=== PATIENT | female | born 1955 | race Asian ===

== ENCOUNTER 2020-04-21 15:08 | Inpatient (IN) | payer OTHER, SELFPAY ==
[~2020-04-21] VITALS: Ht 154.9 cm; Wt 58.7 kg
[2020-04-21 15:57] VITALS: BP 122/65
--- NOTE | 2020-04-21 16:01 | NUR ---
OF1
--- NOTE | 2020-04-21 16:14 | NUR ---
64/F BIB DAUGHTER C/O COUGH, SOB, LOO, SORE THROAT,BODY ACHES X 3 DAYS. PMH: DM, HTN
[2020-04-21 17:11] LABS: BASOPHILS % (AUTO) 0.3 % (0.0-2.0); EOSINOPHILS # (AUTO) 0.1 K/uL (0-0.4); EOSINOPHILS % (AUTO) 1.2 % (0.0-4.0); LYMPHOCYTES % (AUTO) 9.2 % (20.5-51.1); MEAN CORPUSCULAR HEMOGLOBIN 29 pg (27-31); MEAN CORPUSCULAR HGB CONC 32 g/dL (33-37); MEAN CORPUSCULAR VOLUME 90.6 fL (80-94); MONOCYTES # (AUTO) 0.6 K/uL (0.8-1.0); NEUTROPHILS # (AUTO) 9.3 K/uL (1.8-7.7); NEUTROPHILS % (AUTO) 84.3 % (42.2-75.2); PLATELET COUNT (AUTO) 416 K/uL (140-450); RED BLOOD CELL COUNT(AUTO) 3.42 MIL/uL (4.20-5.40); RED CELL DISTRIBUTION WIDTH 13.6 % (11.6-13.7); WHITE BLOOD COUNT (AUTO) 11.1 K/uL (4.8-10.8)
[2020-04-21 17:25] LABS: APPEARANCE,URINE HAZY (CLEAR); BILIRUBIN,URINE NEGATIVE (NEGATIVE); BLOOD, URINE NEGATIVE (NEGATIVE); COLOR,URINE YELLOW (YELLOW); LEUKOCYTE ESTERASE ,URINE TRACE (NEGATIVE); NITRITE, URINE NEGATIVE (NEGATIVE); UGLUCOSE NEGATIVE (NEGATIVE)
[2020-04-21] MEDS ORDERED: DEXAMETHASONE 10 MG/ML VIAL IVP ONE (17:25)
[2020-04-21] MEDS ORDERED: AZITHROMYCIN 500 MG in DEXTROSE 5% 250 ML IV ONE (17:25)
[2020-04-21 17:30] LABS: PROTHROMBIN TIME 8.7 secs (10.8-13.4)
[2020-04-21 17:32] LABS: LACTATE DEHYDROGENASE 533 U/L (81-234)
[2020-04-21 17:33] LABS: ALBUMIN 3.3 g/dL (3.4-5.0); ANION GAP 20.4 (8-16); CARBON DIOXIDE 19.6 mmol/L (21-32); CREATININE 3.3 mg/dL (0.6-1.3); TOTAL BILIRUBIN 0.4 mg/dL (0.0-1.0)
[2020-04-21 17:38] LABS: RBC,URINE 0-5 /HPF (0-5)
[2020-04-21 17:39] LABS: COARSE GRANULAR CASTS,URINE 0-10 /LPF (None Seen)
[2020-04-21 18:00] LABS: RSV NEGATIVE (NEGATIVE)
[2020-04-21] MEDS ORDERED: AZITHROMYCIN 500 MG INJ VIAL IV ONE (18:19)
[2020-04-21] MEDS ORDERED: cefTRIAXone 1,000 MG VIAL ONE (18:19)
[2020-04-21] MEDS ORDERED: OSELTAMIVIR PHOSPHATE 75 MG CAP PO STA (19:52)
--- NOTE | 2020-04-21 20:01 | NUR ---
PT AMBULATED TO BED 7
--- NOTE | 2020-04-21 20:30 | NUR ---
RECEIVED IN BED 7 WITH C/O COUGH X 4 DAYS. 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 APPEARS TIRED.
--- NOTE | 2020-04-21 20:40 | NUR ---
COVID SWABS [id number] AND SENT TO LAB
[2020-04-21] MEDS ORDERED: OSELTAMIVIR PHOSPHATE 75 MG CAP ONE (21:00)
[2020-04-21] MEDS ORDERED: HYDROcodone/APAP 7.5/325 MG 1 TAB PO PRN (23:15)
[2020-04-21] MEDS ORDERED: ALBUTEROL HFA MDI 90 MCG/ACTUATION 8 GM INH PRN (23:15)
[2020-04-21] MEDS ORDERED: DEXTROSE 50% 50 ML SYR IVP PRN (23:15)
[2020-04-21] MEDS ORDERED: ACETAMINOPHEN 325 MG TAB PO PRN (23:15)
[2020-04-21] MEDS ORDERED: POTASSIUM CHLORIDE 10 MEQ TABER PO PRN (23:15)
[2020-04-21] MEDS ORDERED: ONDANSETRON 4 MG/2 ML VIAL IM/IVP PRN (23:15)
[2020-04-21] MEDS ORDERED: DOCUSATE SODIUM 100 MG GELCAP PO PRN (23:15)
[2020-04-21] MEDS: NACL 0.9% 1,000 ML IV SCH (23:44)
[2020-04-21 23:55] LABS: CHOL/HDL RATIO 10.9 (1-4.5); FREE T4 (FREE THYROXINE) 1.01 ng/dL (0.76-1.46); MAGNESIUM 2.5 mg/dL (1.8-2.4); PHOSPHORUS 3.6 mg/dL (2.5-4.9); THYROID STIMULATING HORMONE 10.66 uIU/mL (0.34-3.74)
--- NOTE | 2020-04-22 00:05 | NUR ---
RESTING IN BED WITH EYES CLOSED. RESPIRATIONS REGULAR AND UNLABORED.
--- NOTE | 2020-04-22 07:32 | NUR ---
Pt ambulated to bathroom with daughter, steady gait.
--- NOTE | 2020-04-22 07:36 | NUR ---
Transfer of care at this time from ROMMEL Moore
[2020-04-22] MEDS ORDERED: guaiFENesin 600 MG TABER PO ONE ×2 (07:40→22:07)
--- NOTE | 2020-04-22 07:40 | NUR ---
pt reporting cough and requesting cough medication, chandlerd made aware.
[2020-04-22] MEDS: BLOOD GLUCOSE MONITORING 1 DEV DEV FS SCH ×4 (08:27→21:35)
[2020-04-22] MEDS: OSELTAMIVIR PHOSPHATE 30 MG CAP PO SCH (08:28)
[2020-04-22] MEDS: ZINC SULF 220 MG CAP PO SCH (08:28)
[2020-04-22] MEDS: INSULIN LISPRO SLIDING SCALE 100 UNITS/ML VIAL SUBQ PRN ×3 (08:45→21:47)
[2020-04-22 08:51] LABS: BASOPHILS % (AUTO) 0.1 % (0.0-2.0); HEMATOCRIT 27.2 % (36-48); LYMPHOCYTES # (AUTO) 0.7 K/uL (2.5-16.5); LYMPHOCYTES % (AUTO) 9.4 % (20.5-51.1); MEAN CORPUSCULAR HEMOGLOBIN 30 pg (27-31); MEAN CORPUSCULAR HGB CONC 33 g/dL (33-37); MEAN CORPUSCULAR VOLUME 91.5 fL (80-94); MONOCYTES # (AUTO) 0.3 K/uL (0.8-1.0); MONOCYTES % (AUTO) 4.4 % (1.7-9.3); NEUTROPHILS # (AUTO) 6.3 K/uL (1.8-7.7); NEUTROPHILS % (AUTO) 86.1 % (42.2-75.2); PLATELET COUNT (AUTO) 360 K/uL (140-450); RED BLOOD CELL COUNT(AUTO) 2.98 MIL/uL (4.20-5.40); RED CELL DISTRIBUTION WIDTH 13.5 % (11.6-13.7); WHITE BLOOD COUNT (AUTO) 7.3 K/uL (4.8-10.8)
[2020-04-22] MEDS ORDERED: AZITHROMYCIN 250 MG TAB PO SCH (09:00)
[2020-04-22] MEDS ORDERED: OSELTAMIVIR PHOSPHATE 75 MG CAP PO SCH (09:00)
--- NOTE | 2020-04-22 09:57 | NUR ---
pt ambulated to bathroom, steady gait.
[2020-04-22] MEDS: ASCORBIC ACID 500 MG TAB PO SCH (10:08)
[2020-04-22] MEDS: NACL 0.9% 1,000 ML IV SCH (16:20)
--- NOTE | 2020-04-22 16:20 | NUR ---
ACCUCHECK 294. PT ASLEEP IN BED, RR EVEN AND UNLABORED. PT REPORTING COUGH AND REQUESTING MEDICATION. WILL PAGE .
--- NOTE | 2020-04-22 16:32 | NUR ---
SPOKE TO PTS WITH UPDATE ON PTS STATUS.
[2020-04-22] MEDS ORDERED: cefTRIAXone 1,000 MG VIAL ONE (17:06)
--- NOTE | 2020-04-22 17:30 | NUR ---
PT AMBULATED TO BATHROOM STEADY GAIT.
--- NOTE | 2020-04-22 19:17 | NUR ---
TRANSFER OF CARE AT THIS TIME TO ROMMEL GRAFF
--- NOTE | 2020-04-22 19:22 | NUR ---
report received shantel antigen (+)
--- NOTE | 2020-04-22 20:00 | NUR ---
RESTING IN BED WITH EYES CLOSED. RESPIRATIONS REGULAR AND UNLABORED
[2020-04-22] MEDS ORDERED: guaiFENesin 600 MG TABER PO PRN (22:00)
--- NOTE | 2020-04-22 22:00 | NUR ---
C/O COUGH. MUCINEX GIVEN ORDERED
--- NOTE | 2020-04-23 04:00 | NUR ---
AWAKE, HAS BEEN RESTING WITH EYES CLOSED. AMBULATES TO BR WITH STEADY GAIT. VOICES NO C/O.
--- NOTE | 2020-04-23 06:30 | NUR ---
DR AIKEN AT BEDSIDE FOR EXAM
--- NOTE | 2020-04-23 06:53 | NUR ---
Dr. Shannon examining patient.
--- NOTE | 2020-04-23 07:09 | NUR ---
PATIENT HAS BEEN SCREENED AND CATEGORIZED MODERATE NUTRITION RISK. PATIENT WILL BE SEEN WITHIN 3-5 DAYS OF ADMISSION. 04/24/20 - 04/26/20 PATTI ULLOA MBA, RD
[2020-04-23 07:12] LABS: T4 (THYROXINE) 6.4 ug/dL (4.5-12.0)
[2020-04-23] MEDS: BLOOD GLUCOSE MONITORING 1 DEV DEV FS SCH (08:08)
[2020-04-23] MEDS: INSULIN LISPRO SLIDING SCALE 100 UNITS/ML VIAL SUBQ PRN (08:09)
--- NOTE | 2020-04-23 08:29 | NUR ---
REC'D REPORT FROM MANGO AT ED. POSITIVE COVID PCR. 3L NC SATURATION 100% A/Ox4. CCHO 60GM. IV LAC 20G. NS 60 ML/HR
[2020-04-23] MEDS: NACL 0.9% 1,000 ML IV SCH (08:35)
--- NOTE | 2020-04-23 09:05 | NUR ---
9AM MEDICATIONS ENDORSED TO ROMMEL NEUMANN
--- NOTE | 2020-04-23 09:10 | NUR ---
REC'D PT. FROM ER. STABLE, 3L NC, SKIN INTACT A/Ox4, IV L. AC 60ML/HR NS. SIS2 LUNGS CLEAR. NO EDEMA NOTED ON EXTREMITIES. ABLE TO AMBULATE AND TRANSFER TO BED.
--- NOTE | 2020-04-23 09:10 | NUR ---
Patient will be admitted to care of DR JUSTICE. Admited to TELE. Will go to room 116. Belongings list completed. Report to ROMMEL NEUMANN.
[2020-04-23 09:19] LABS: BASOPHILS # (AUTO) 0.1 K/uL (0.00-0.22); BASOPHILS % (AUTO) 0.6 % (0.0-2.0); HEMATOCRIT 28.5 % (36-48); HEMOGLOBIN 9.3 g/dL (12.0-16.0); LYMPHOCYTES # (AUTO) 0.8 K/uL (2.5-16.5); LYMPHOCYTES % (AUTO) 5.2 % (20.5-51.1); MEAN CORPUSCULAR HEMOGLOBIN 30 pg (27-31); MEAN CORPUSCULAR HGB CONC 33 g/dL (33-37); MEAN CORPUSCULAR VOLUME 91.1 fL (80-94); MONOCYTES # (AUTO) 1.2 K/uL (0.8-1.0); MONOCYTES % (AUTO) 7.2 % (1.7-9.3); NEUTROPHILS # (AUTO) 14.1 K/uL (1.8-7.7); PLATELET COUNT (AUTO) 454 K/uL (140-450); RED BLOOD CELL COUNT(AUTO) 3.12 MIL/uL (4.20-5.40); RED CELL DISTRIBUTION WIDTH 13.7 % (11.6-13.7); WHITE BLOOD COUNT (AUTO) 16.2 K/uL (4.8-10.8)
[2020-04-23 09:41] LABS: ALBUMIN 2.8 g/dL (3.4-5.0); ANION GAP 18.4 (8-16); CARBON DIOXIDE 17.3 mmol/L (21-32); MAGNESIUM 2.7 mg/dL (1.8-2.4); PHOSPHORUS 2.4 mg/dL (2.5-4.9); POTASSIUM 4.7 mmol/L (3.5-5.1); TOTAL BILIRUBIN 0.2 mg/dL (0.0-1.0)
[2020-04-23] MEDS ORDERED: DEC1 PO (10:56)
[2020-04-23] MEDS ORDERED: AZIT250T3 PO (10:56)
[2020-04-23] MEDS ORDERED: ASPI-1205 PO (10:58)
[2020-04-23] MEDS ORDERED: TAM75 PO (10:58)
[2020-04-23] MEDS ORDERED: guaiFENesin 600 MG TABER PO PRN (11:06)
[2020-04-23] MEDS: ASCORBIC ACID 500 MG TAB PO SCH (11:43)
[2020-04-23] MEDS: OSELTAMIVIR PHOSPHATE 30 MG CAP PO SCH (11:43)
[2020-04-23] MEDS: ZINC SULF 220 MG CAP PO SCH (11:44)
--- NOTE | 2020-04-23 11:50 | NUR ---
ADMINISTERED MEDICATIONS PER MD. ORDER. PT TOLERATED PROCEDURE WELL.
[2020-04-23 12:04] VITALS: BP 111/56
--- NOTE | 2020-04-23 14:50 | NUR ---
DISCHARGED PT. IV LINE REMOVED, INTACT. ID BAND REMOVED. PT STABLE. TAKEN TO FAMILY VIA WHEELCHAIR.
--- NOTE | 2020-04-23 15:00 | NUR ---
DC PLANNIN YRS OLD FEMALE PATIENT WAS ADMITTED FROM HOME WITH A DX OF COVID PNA, HYPOXIA. PT HAS A HX OF DM, HTN, CXR SHOWED PNEUMONIA. PCR COVID TEST POSITIVE STARTED COVID PROTOCOL REMDESIVIR, ROCEPHIN AND AZITHROMYCIN . BLOOD AND URINE CULTURE PENDING. CONSULTED WITH PULMO AND ID. CM TO FOLLOW
--- NOTE | 2020-04-23 16:04 | NUR ---
SOCIAL WORK NOTE: Patient's Orientation Unable To Assess Information Provided By MARINA WIGGINS - DAUGHTER Comments SW WAS UNABLE TO MEET PATIENT AT BEDSIDE DUE TO MEDICAL CONDITION. SW COMPLETED ASSESSMENT WITH PATIENT'S DAUGHTER. Oncology Radiation Physician, Realtionship and Phone Number MARINA WIGGINS DAUGHTER [phone] Healthcare Power of Enrollment Management Director No Does Patient Have a POLST No Identifying Problems No Social Work Triggers Is A Social Work Consult Needed No Mandate Report Filed No Explanation Of Identifying Problems PATIENT IS A 64-YEAR-OLD FEMALE ADMITTED FOR COVID, PNEUMONIA, AND HYPOXIA. PATIENT HAS PMHX OF HYPERETNSION AND DM. DAUGHTER REPORTED NO HISTORY OF SUBSTANCE ABUSE OR MENTAL HEALTH. Admitted From Home Pre-Admission Level Of Functioning Status Independent/Ambulatory Prior Resources/Services Used In Last 12 Months No Prior Resources Used Prior DME No Prior DME Used Dialysis Comments N/A Living Situation Lives With Family House Other Living Situation/Comment DAUGHTER REPORTED THAT PATIENT LIVES WITH AND CHILDREN. Patient Had Caregiver No Home Support No Caregiver Issues Financial Issues No Known Financial Issue Referral To The Financial Counselor Needed No Factors/Needs No D/C Needs Identified Pt/Rep Participated In Discharge Plan Yes Patient/Family Agress With Discharge Plan Yes Discharge Plan Comments TENTATIVE DISCHARGE PLAN IS FOR PATIENT TO RETURN HOME. DC Plan Status Initiated
== END 2020-04-23 14:55 | disposition home or self-care (01) | DRG 177 ==
LOC: MED 15:08 → MTU 17:43
PROVIDERS: ADMIT Emergency Medicine; ATTEND Emergency Medicine
DX: U07.1 COVID-19 (principal); J96.01 Acute respiratory failure with hypoxia; J12.89 Other viral pneumonia; J11.08 Influenza due to unidentified influenza virus with specified pneumonia; N17.9 Acute kidney failure, unspecified; E87.1 Hypo-osmolality and hyponatremia; E86.0 Dehydration; E11.9 Type 2 diabetes mellitus without complications; I10 Essential (primary) hypertension
CPT/HCPCS: 36415; 36600; 71045; 80053; 81001; 82550; 82728; 82803; 82948; 83036; 83605; 83615; 83735; 83880; 84100; 84436; 84439; 84443; 84479; 84484; 85025; 85379; 85384; 85610; 85651; 85730; 86140; 86900; 86901; 87040; 87086; 87420; 87804; 93005; 96365; 96375; 99291; J0456; J0696; J1100; J1644; J7060; U0003

== ENCOUNTER 2022-04-27 21:19 | Emergency (ER) | payer OTHER ==
[~2022-04-27] VITALS: Ht 154.9 cm; Wt 57.6 kg
[~2022-04-27 21:19] MED LIST: ASPI-1205 PO; AZIT250T3 PO; DEC1 PO; TAM75 PO
[2022-04-27 21:45] VITALS: BP 133/83
--- NOTE | 2022-04-27 21:48 | NUR ---
TO LOBBY A/W BED AMBULATORY
--- NOTE | 2022-04-27 22:14 | NUR ---
Patient returned back from CT scan, and taken to bed 9.
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
--- NOTE | 2022-04-27 22:22 | NUR ---
Dr. Gallo examining patient.
[2022-04-27] MEDS ORDERED: ACETAMINOPHEN EXTRA STRENGTH 500 MG TAB PO ONE (22:30)
[2022-04-27] MEDS ORDERED: BACITRACIN OINT 500 UNITS/GM PKT TP ONE (22:30)
[2022-04-27] MEDS ORDERED: CYCL-711 PO (22:58)
[2022-04-27] MEDS ORDERED: ACET-10509 PO (22:58)
--- NOTE | 2022-04-27 23:04 | NUR ---
Called her family for a ride.
[2022-04-27 23:10] VITALS: BP 127/83
--- NOTE | 2022-04-27 23:10 | NUR ---
Patient discharged with v/s stable. Written and verbal after care instructions given and explained. Patient alert, oriented and verbalized understanding of instructions. Ambulatory with steady gait. All questions addressed prior to discharge. ID band removed. Patient advised to follow up with PMD. Rx of Tylenol and Flexeril given. Patient educated on indication of medication including possible reaction and side effects. Opportunity to ask questions provided and answered.
== END 2022-04-27 23:10 | disposition home or self-care (01) ==
LOC: MED 21:19
DX: S00.83XA Contusion of other part of head, initial encounter (principal); S40.011A Contusion of right shoulder, initial encounter; E11.9 Type 2 diabetes mellitus without complications; I10 Essential (primary) hypertension; Z90.49 Acquired absence of other specified parts of digestive tract; Z98.890 Other specified postprocedural states; Z79.899 Other long term (current) drug therapy; Z79.82 Long term (current) use of aspirin; V89.2XXA Person injured in unspecified motor-vehicle accident, traffic, initial encounter; Y93.89 Activity, other specified; Y92.89 Other specified places as the place of occurrence of the external cause; Y99.8 Other external cause status
CPT/HCPCS: 70450; 71045; 99284

== ENCOUNTER 2023-12-31 02:34 | Emergency (ER) | payer OTHER ==
[~2023-12-31] VITALS: Ht 154.9 cm; Wt 53.1 kg
[~2023-12-31 02:34] MED LIST changes: +ACET500T99 PO; +AMLO10TA PO; +ASPI81CT95 PO; -AZIT250T3 PO; -DEC1 PO; +HYDR-5080 PO; +PROP60TA PO; +SIMV-373 PO; +SYN.075 PO; -TAM75 PO; +VALS80TA2 PO
[2023-12-31 02:41] VITALS: BP 115/55; PULSE 68; RESP 16; TEMP 98.3; O2SAT 98
[2023-12-31 02:46] VITALS: TEMP 98.3
[2023-12-31] MEDS: HYDROcodone/APAP 5/325 MG 1 TAB TAB PO ONE (03:11)
[2023-12-31 03:24] LABS: BASOPHILS # (AUTO) 0.1 K/uL (0.00-0.22); BASOPHILS % (AUTO) 1.1 % (0.0-2.0); EOSINOPHILS # (AUTO) 0.4 K/uL (0-0.4); EOSINOPHILS % (AUTO) 5.6 % (0.0-4.0); HEMATOCRIT 25.5 % (36-48); HEMOGLOBIN 8.7 g/dL (12.0-16.0); LYMPHOCYTES # (AUTO) 1.6 K/uL (2.5-16.5); LYMPHOCYTES % (AUTO) 22.6 % (20.5-51.1); MEAN CORPUSCULAR HEMOGLOBIN 34 pg (27-31); MEAN CORPUSCULAR HGB CONC 34 g/dL (33-37); MEAN CORPUSCULAR VOLUME 100.6 fL (80-94); MONOCYTES # (AUTO) 0.6 K/uL (0.8-1.0); MONOCYTES % (AUTO) 7.9 % (1.7-9.3); NEUTROPHILS # (AUTO) 4.4 K/uL (1.8-7.7); NEUTROPHILS % (AUTO) 62.8 % (42.2-75.2); PLATELET COUNT (AUTO) 311 K/uL (140-450); RED BLOOD CELL COUNT(AUTO) 2.54 MIL/uL (4.20-5.40); RED CELL DISTRIBUTION WIDTH 13.9 % (11.6-13.7)
[2023-12-31 03:32] LABS: ANION GAP 9.1 (8-16); CALCIUM 10.4 mg/dL (8.5-10.1); CARBON DIOXIDE 28.8 mmol/L (21-32); CREATININE 2.1 mg/dL (0.6-1.3); POTASSIUM 3.9 mmol/L (3.5-5.1)
[2023-12-31 04:40] VITALS: BP 92/56; PULSE 57; RESP 12; O2SAT 98
[2023-12-31] MEDS ORDERED: ACET-9527 PO (05:20)
[2023-12-31] MEDS ORDERED: ACET-9525 PO (05:22)
[2023-12-31 05:33] LABS: BILIRUBIN,URINE NEGATIVE (NEGATIVE); BLOOD, URINE NEGATIVE (NEGATIVE); COLOR,URINE YELLOW (YELLOW); LEUKOCYTE ESTERASE ,URINE TRACE (NEGATIVE); NITRITE, URINE NEGATIVE (NEGATIVE); PROTEIN,URINE TRACE (NEGATIVE); UGLUCOSE NEGATIVE (NEGATIVE); UROBILINOGEN,URINE 0.2 EU/dL (0.2 - 1)
[2023-12-31 05:35] LABS: APPEARANCE,URINE HAZY (CLEAR)
[2023-12-31 05:41] LABS: RBC,URINE 0 /HPF (0-5); WBC,URINE 0-5 /HPF (0-5)
[2023-12-31 05:42] LABS: BACTERIA,URINE 1+ /HPF (None Seen); MUCUS,URINE None Seen /LPF (None Seen); SQUAMOUS EPITHELIAL CELL,UR 4-10 (MOD) /LPF (0-3 (FEW))
[2023-12-31] MEDS: IBUPROFEN 400 MG TAB PO ONE (06:06)
== END 2023-12-31 06:45 | disposition home or self-care (01) ==
LOC: MED 02:34
DX: M79.672 Pain in left foot (principal); M79.671 Pain in right foot; R22.43 Localized swelling, mass and lump, lower limb, bilateral; E11.9 Type 2 diabetes mellitus without complications; I10 Essential (primary) hypertension; Z79.1 Long term (current) use of non-steroidal anti-inflammatories (NSAID); Z79.82 Long term (current) use of aspirin; Z79.899 Other long term (current) drug therapy
CPT/HCPCS: 36415; 71045; 80048; 81001; 85025; 99284; Q0092